=== PATIENT | female | born 1985 | race Two or more races ===

== ENCOUNTER 2017-12-28 06:30 | Inpatient (IN) ==
[2017-12-28] MEDS ORDERED: LR 1000 ML IV 1,000 ML IV ONE ×3 (06:31→08:04)
[2017-12-28] MEDS ORDERED: ANCEF 1 GRAM IV PREMIX* 1 G/50 ML BAG IV ONE (06:32)
[2017-12-28] MEDS ORDERED: D5 1/2 NS 1L W PITOCIN 20 UNITS/L 20 UNITS/1,000 ML BAG IV ONE (06:32)
[2017-12-28] MEDS ORDERED: ANCEF VIAL 1 GRAM 1 G in NS 50 ML IV + SPIKE MINIBAG* 50 ML IV PRN (06:42)
[2017-12-28] MEDS ORDERED: D5 1/2 NS 1000 ML 1,000 ML IV SCH (06:42)
[2017-12-28] MEDS ORDERED: DURAMORPH ONE (06:51)
[2017-12-28] MEDS ORDERED: XYLOCAINE 1 % (PLAIN) ONE ×2 (06:51→14:35)
[2017-12-28 07:45] LABS: BILIRUBIN,URINE NEGATIVE (NEGATIVE); BLOOD/HEMOGLOBIN,URINE 1+ (NEGATIVE); GLUCOSE, URINE 1+ (NEGATIVE); KETONES,URINE 1+ (NEGATIVE); LEUKOCYTE ESTERASE ,URINE 1+ (NEGATIVE); NITRITES,URINE NEGATIVE (NEGATIVE); PH,URINE 6.5 (5.0 - 8.0); PROTEIN,URINE 2+ (NEGATIVE); UROBILINOGEN,URINE 1+ (NORMAL)
[2017-12-28 08:05] LABS: APPEARANCE,URINE HAZY (CLEAR); BACTERIA,URINE TRACE /HPF (NEGATIVE); COLOR,URINE YELLOW (YELLOW); RBC,URINE 0-2 /HPF (NONE SEEN); SQUAMOUS EPITHELIAL CELL,UR RARE /HPF (NEGATIVE)
[2017-12-28 08:06] LABS: AMORPHOUS SEDIMENT,UR TRACE /HPF (NEGATIVE)
[2017-12-28] MEDS ORDERED: BENADRYL INJ 50 MG VIAL IVP PRN ×2 (08:50→09:21)
[2017-12-28] MEDS ORDERED: ZOFRAN INJ 4 MG VIAL IVP PRN ×2 (08:50→09:21)
[2017-12-28] MEDS ORDERED: REGLAN INJ 10 MG VIAL IVP PRN ×2 (08:50→09:21)
[2017-12-28] MEDS ORDERED: PHENERGAN INJ 25 MG IVP PRN (08:50)
[2017-12-28] MEDS ORDERED: NARCAN INJ IVP PRN (09:21)
[2017-12-28] MEDS ORDERED: MYLICON TAB 80 MG CHEW PO PRN (09:21)
[2017-12-28] MEDS ORDERED: TORADOL 30 MG VIAL IVP PRN (09:21)
[2017-12-28] MEDS ORDERED: D5 1/2 NS 1000 ML 1,000 ML with PITOCIN 20 UNITS IV SCH ×2 (09:21)
[2017-12-28] MEDS ORDERED: PERCOCET TAB 5/325 MG PO PRN (09:21)
[2017-12-28] MEDS ORDERED: ADACEL or BOOSTRIX TDaP VACCINE IM ONE (09:21)
[2017-12-28] MEDS: ZANTAC PO SCH ×2 (10:50→21:16)
[2017-12-28] MEDS: PRENATAL PLUS PO SCH (10:51)
[2017-12-28] MEDS ORDERED: VERSED ONE (14:35)
[2017-12-28] MEDS ORDERED: DIPRIVAN VIAL ONE (14:35)
[2017-12-28] MEDS ORDERED: XYLOCAINE 2 % (PLAIN) ONE (14:35)
[2017-12-28] MEDS ORDERED: PITOCIN ONE (14:35)
[2017-12-28] MEDS ORDERED: EPHEDRINE SULFATE INJ ONE (14:35)
[2017-12-28] MEDS ORDERED: ZOFRAN INJ 4 MG VIAL ONE (14:35)
[2017-12-28] MEDS: FERROUS GLUCONATE PO SCH (17:12)
[2017-12-29 05:38] LABS: HEMOGLOBIN 6.6 g/dL (12.0-16.0)
[2017-12-29 05:39] LABS: HEMATOCRIT 19.7 % (36.0-47.0)
[2017-12-29] MEDS: FERROUS GLUCONATE PO SCH ×3 (06:44→17:06)
[2017-12-29] MEDS ORDERED: MOTRIN TAB 800 MG PO PRN (09:03)
[2017-12-29] MEDS ORDERED: BENADRYL INJ 50 MG VIAL IVP ONE ×2 (09:04→16:01)
[2017-12-29] MEDS ORDERED: TYLENOL 325 MG TAB PO ONE ×3 (09:05→16:02)
[2017-12-29] MEDS: ZANTAC PO SCH ×2 (09:17→22:00)
[2017-12-29] MEDS: PRENATAL PLUS PO SCH (09:17)
[2017-12-29] MEDS ORDERED: NS 250 ML IV 250 ML IV ONE (11:40)
[2017-12-29] MEDS: BACTROBAN TOPICAL OINT TOP SCH ×2 (15:57→22:00)
[2017-12-29] MEDS: COLACE CAP 100 MG PO SCH (22:00)
[2017-12-30] MEDS ORDERED: NS 250 ML IV 250 ML IV ONE (00:32)
[2017-12-30 05:05] LABS: HEMATOCRIT 28.8 % (36.0-47.0); HEMOGLOBIN 9.6 g/dL (12.0-16.0)
[2017-12-30] MEDS: BACTROBAN TOPICAL OINT TOP SCH (05:33)
[2017-12-30] MEDS: FERROUS GLUCONATE PO SCH (06:02)
[2017-12-30 08:29] VITALS: BP 103/57
[2017-12-30] MEDS: COLACE CAP 100 MG PO SCH (10:54)
[2017-12-30] MEDS: ZANTAC PO SCH (10:55)
[2017-12-30] MEDS: PRENATAL PLUS PO SCH (10:55)
== END 2017-12-30 11:45 | disposition home or self-care (01) | DRG 766 ==
LOC: LD 06:30 → MED/SURG 09:22
PROVIDERS: ADMIT Specialist; ATTEND Specialist
DX: Z37.0 Single live birth; Z3A.37 37 weeks gestation of pregnancy; O44.03 Complete placenta previa NOS or without hemorrhage, third trimester; D64.89 Other specified anemias; O99.02 Anemia complicating childbirth
CPT/HCPCS: 36415; 36430; 81001; 85014; 85018; 86850; 86900; 86901; 86922; 90715; A4216; A4222; P9016; S0197; J0690; J1200; J2250; J2405; J2590; J2704; J3490; J7050; J7120